=== PATIENT | male | born 1985 | race Caucasian/White ===

== ENCOUNTER 2019-01-06 10:14 | Emergency (ER) | payer BC, MEDICAID ==
[2019-01-06] MEDS: Sodium Chloride 0.9% 10 ML Syringe FLUSH PRN ×2 (10:40→13:38)
[2019-01-06] MEDS ORDERED: Lidocaine 2% HCl 6 ML JEL.PF.APP ONE ×2 (10:49→11:00)
[2019-01-06] MEDS: Lidocaine 2% HCl 6 ML JEL.PF.APP ONE ×2 (11:00→13:58)
--- NOTE | 2019-01-06 11:01 | EDM.PDOC ---
ED HPI GENERAL MEDICAL PROBLEM - General Stated Complaint: KIDNEY ISSUE Time Seen by Provider: 01/06/19 10:30 Source of Information: Reports: Patient History Limitations: Reports: No Limitations - History of Present Illness INITIAL COMMENTS - FREE TEXT/NARRATIVE: 33-year-old male who reports 4-5 days ago he began to feel somewhat bloated and having decreased urine output and he begin to take an [id number] diuretic that he bought at [employer] for the last 3-4 days he has noticed increasing abdominal swelling and increased swelling in his legs and arms and increased difficulty breathing. He's also noticed that he has had little urine output over this period of time as well he has not had any chest pain. He's had no nausea or vomiting. He reports she's been able to eat and drink normally. He also reports that about 3 weeks ago he "busted a nut" (strained his right groin and had testicular pain on the right side) and then this seemed to get better until about a week ago when he did the same thing and had recurrent right groin and right testicular pain. At present he just feels uncomfortable all over and doesn't really have any specific pain. In fact he tells me that his pain is at a 0/10. He is brought here by family members. He tells me that he is short of breath at rest and he and not lay down secondary to having marked increase in his breathing difficulty. He also notes that with any activity he is very short of breath. No fevers or chills. No blood in his urine. He reports he has been having bowel movements but he does feel that he is somewhat constipated. He also tells me that since he was a child he has had problems with his kidneys and ureters and he had to have surgery on his ureters for blockages as a child. 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 He presents via private vehicle markedly short of breath with total body edema. There are no other associated signs or symptoms. There are no other modifying factors. Onset: Other (4-5 days ago) Duration: Getting Worse Location: Reports: Other (All over) Quality: Reports: Ache Severity: Moderate Improves with: Reports: None Worsens with: Reports: None Context: Reports: Other (Not applicable) Associated Symptoms: Reports: Shortness of Breath, Other (Total body swelling) Treatments DISK SANDER: Reports: Other (see below) (Bien-chd-gknbbff diuretics) - Related Data Allergies Allergy/AdvReac Type Severity Reaction Status Date / Time bee venom protein (honey bee) Allergy Rash Verified 01/06/19 10:51 Past Medical History Genitourinary History: Reports: Other (See Below) (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; reported renal insufficiency from a CDL physical about a year ago.) - Past Surgical History Male Surgical History: Reports: Other (See Below) (Surgeries and procedures for ureteral obstruction/reflux as a child.) Social & Family History - Tobacco Use Smoking Status *Q: Unknown Ever Smoked (Nonsmoker) - Alcohol Use Alcohol Use History: Yes Alcohol Use Frequency: Rarely - Recreational Drug Use Recreational Drug Use: No - Living Situation & Occupation Living situation: Reports: with Significant Other Occupation: Employed (Drives truck) Social History Comment: He is here with his significant other, [id number] and mother. ED ROS GENERAL - Review of Systems Review Of Systems: See Below Constitutional: Reports: Malaise, Weakness, Weight Gain, Other (Total body swelling) HEENT: Reports: No Symptoms Respiratory: Reports: Shortness of Breath, Cough Cardiovascular: Reports: Dyspnea on Exertion, Orthopnea Endocrine: Reports: Fatigue GI/Abdominal: Reports: Constipation, Distension : Reports: Other (Decreased urinary output) Musculoskeletal: Reports: Other (Bilateral knee pain) Skin: Reports: Rash (Vesicular rash on legs) Neurological: Reports: Weakness (All over) Hematologic/Lymphatic: Reports: No Symptoms Immunologic: Reports: No Symptoms ED EXAM, GENERAL - Physical Exam Exam: See Below Exam Limited By: No Limitations General Appearance: Alert, WD/WN, Moderate Distress (To severe distress) Eye Exam: Bilateral Eye: EOMI, Normal Inspection, PERRL Ears: Normal External Exam, Hearing Grossly Normal Nose: Normal Inspection, Normal Mucosa, No Blood Throat/Mouth: Normal Inspection, Normal Lips Head: Atraumatic, Normocephalic Neck: Normal Inspection, Supple, Non-Tender, Full Range of Motion Respiratory/Chest: Respiratory Distress, Rales (Bilaterally), Wheezing, Accessory Muscle Use Cardiovascular: Normal Peripheral Pulses, Tachycardia Peripheral Pulses: 2+: Radial (L), Radial (R), Dorsalis Pedis (L), Dorsalis Pedis (R) GI/Abdominal: Normal Bowel Sounds, Distended. No: Rebound, Tender (Male) Exam: No Hernia, Scrotal Swelling, Other (Marked edema with tenderness over scrotum and somewhat withdrawn testicles) Back Exam: Normal Inspection Extremities: Normal Capillary Refill, Pedal Edema (Marked 2-3+ edema) Neurological: Alert, Oriented, CN II-XII Intact, Normal Cognition, Normal Gait, No Motor/Sensory Deficits Skin Exam: Warm, Dry, Intact EKG INTERPRETATION EKG Date: 01/06/19 Time: 10:25 Rhythm: Other (Sinus tachycardia) Rate (Beats/Min): 124 [place]: Normal P-Wave: Present QRS: Normal ST-T: Other (Early repolarization with ST flattening laterally and inferiorly) QT: Normal Comparison: NA - No Prior EKG Course - Vital Signs Last Recorded V/S: Last Vital Signs Temp 36.4 C 01/06/19 10:14 Pulse 127 H 01/06/19 10:14 Resp 28 H 01/06/19 10:14 BP 128/104 H 01/06/19 10:14 Pulse Ox 87 L 01/06/19 10:14 - Orders/Labs/Meds Orders: Active Orders 24 hr Category Date Time Status EKG Documentation Completion [RC] ASDIRECTED Care 01/06/19 10:53 Active Insert Green Catheter [Insert Urinary Catheter] [OM.PC] Care 01/06/19 11:00 Ordered Q24H Oxygen Therapy Adult [Oxygen Therapy, ED] [RC] Care 01/06/19 12:14 Active ASDIRECTED Urinary Catheter Assessment [RC] QSHIFT Care 01/06/19 10:54 Active Abdomen Pelvis wo Cont [CT] Stat Exams 01/06/19 11:57 Taken Chest 1V Frontal [CR] Stat Exams 01/06/19 10:51 Taken CULTURE BLOOD [BC] Urgent Lab 01/06/19 11:10 Received CULTURE BLOOD [BC] Urgent Lab 01/06/19 11:20 Received CULTURE URINE [RM] Stat Lab 01/06/19 11:00 Received Blood Culture x2 Reflex Set [OM.PC] Urgent Oth 01/06/19 10:55 Ordered Peripheral IV Insertion Adult [OM.PC] Routine Oth 01/06/19 10:51 Ordered EKG 12 Lead [EK] Routine Ther 01/06/19 10:51 Ordered Labs: Laboratory Tests 01/06/19 01/06/19 01/06/19 Range/Units 10:50 10:50 10:50 WBC 13.9 H (4.5-12.0) X10-3/uL RBC 4.73 (4.30-5.75) x10(6)uL Hgb 13.3 L (13.5-17.8) g/dL Hct 41.9 (30.0-51.3) % MCV 88.6 (80-96) fL MCH 28.2 (27.7-33.6) pg MCHC 31.8 L (32.2-35.4) g/dL RDW 19.1 H (11.5-15.5) % Plt Count 203 (125-369) X10(3)uL MPV 9.6 (7.4-10.4) fL Neut % (Auto) 76.0 (46-82) % Lymph % (Auto) 9.5 L (13-37) % [place] % (Auto) 10.5 (4-12) % Eos % (Auto) 0 L (1.0-5.0) % Baso % (Auto) 4 H (0-2) % Neut # (Auto) 10.6 H (1.6-8.3) # Lymph # (Auto) 1.3 (0.6-5.0) # [place] # (Auto) 1.5 H (0.0-1.3) # Eos # (Auto) 0.0 (0.0-0.8) # Baso # (Auto) 0.5 H (0.0-0.2) # PT (8.7-11.1) INR (0.89-1.13) APTT (24.4-33.2) SECONDS Sodium 135 (135-145) mmol/L Potassium 5.0 (3.5-5.3) mmol/L Chloride 103 (100-110) mmol/L Carbon Dioxide 8 L* (21-32) mmol/L BUN 147 H* (7-18) mg/dL Creatinine 8.7 H* (0.70-1.30) mg/dL Est Cr Clr Drug Dosing 13.13 mL/min Estimated GFR (MDRD) 7 L (>60) BUN/Creatinine Ratio 16.9 (9-20) Glucose 114 (80-116) mg/dL Lactic Acid (0.4-2.2) mmol/L Calcium 9.3 (8.6-10.2) mg/dL Magnesium 2.2 (1.8-2.5) mg/dL Total Bilirubin 1.0 (0.1-1.3) mg/dL AST 230 H* (5-25) IU/L ALT 267 H* (12-36) U/L Alkaline Phosphatase 120 H (56-112) IU/L Troponin I 0.128 H* (<0.017-0.056) ng/mL NT-Pro-B Natriuret Pep > 55564 H* (<=125) pg/mL Total Protein 5.9 L (6.0-8.0) g/dL Albumin 2.3 L (3.5-5.2) g/dL Globulin 3.6 g/dL Albumin/Globulin Ratio 0.6 TSH, Ultra Sensitive (0.36-3.74) IU/mL Urine Color (YELLOW) Urine Appearance (CLEAR) Urine pH (5.0-6.5) Ur Specific [place] (1.010-1.025) Urine Protein (NEGATIVE) mg/dL Urine Glucose (UA) (NORMAL) mg/dL Urine Ketones (NEGATIVE) mg/dL Urine Occult Blood (NEGATIVE) Urine Nitrite (NEGATIVE) Urine Bilirubin (NEGATIVE) Urine Urobilinogen (NEGATIVE) mg/dL Ur Leukocyte Esterase (NEGATIVE) Urine RBC (0-5) Urine WBC (0-5) Ur Squamous Epith Cells (NS,R,O) Urine Bacteria (NS) 01/06/19 01/06/19 01/06/19 Range/Units 10:50 11:00 11:10 WBC (4.5-12.0) X10-3/uL RBC (4.30-5.75) x10(6)uL Hgb (13.5-17.8) g/dL Hct (30.0-51.3) % MCV (80-96) fL MCH (27.7-33.6) pg MCHC (32.2-35.4) g/dL RDW (11.5-15.5) % Plt Count (125-369) X10(3)uL MPV (7.4-10.4) fL Neut % (Auto) (46-82) % Lymph % (Auto) (13-37) % [place] % (Auto) (4-12) % Eos % (Auto) (1.0-5.0) % Baso % (Auto) (0-2) % Neut # (Auto) (1.6-8.3) # Lymph # (Auto) (0.6-5.0) # [place] # (Auto) (0.0-1.3) # Eos # (Auto) (0.0-0.8) # Baso # (Auto) (0.0-0.2) # PT 18.5 H (8.7-11.1) INR 1.92 H (0.89-1.13) APTT 31.9 (24.4-33.2) SECONDS Sodium (135-145) mmol/L Potassium (3.5-5.3) mmol/L Chloride (100-110) mmol/L Carbon Dioxide (21-32) mmol/L BUN (7-18) mg/dL Creatinine (0.70-1.30) mg/dL Est Cr Clr Drug Dosing mL/min Estimated GFR (MDRD) (>60) BUN/Creatinine Ratio (9-20) Glucose (80-116) mg/dL Lactic Acid 2.5 H (0.4-2.2) mmol/L Calcium (8.6-10.2) mg/dL Magnesium (1.8-2.5) mg/dL Total Bilirubin (0.1-1.3) mg/dL AST (5-25) IU/L ALT (12-36) U/L Alkaline Phosphatase (56-112) IU/L Troponin I (<0.017-0.056) ng/mL NT-Pro-B Natriuret Pep (<=125) pg/mL Total Protein (6.0-8.0) g/dL Albumin (3.5-5.2) g/dL Globulin g/dL Albumin/Globulin Ratio TSH, Ultra Sensitive (0.36-3.74) IU/mL Urine Color Yellow (YELLOW) Urine Appearance Slightly cloudy (CLEAR) Urine pH 5.0 (5.0-6.5) Ur Specific [place] 1.015 (1.010-1.025) Urine Protein 500 H (NEGATIVE) mg/dL Urine Glucose (UA) Normal (NORMAL) mg/dL Urine Ketones Negative (NEGATIVE) mg/dL Urine Occult Blood Large H (NEGATIVE) Urine Nitrite Negative (NEGATIVE) Urine Bilirubin Negative (NEGATIVE) Urine Urobilinogen Normal (NEGATIVE) mg/dL Ur Leukocyte Esterase Negative (NEGATIVE) Urine RBC 10-20 H (0-5) Urine WBC 5-10 H (0-5) Ur Squamous Epith Cells Occasional (NS,R,O) Urine Bacteria Moderate H (NS) 01/06/19 Range/Units 13:05 WBC (4.5-12.0) X10-3/uL RBC (4.30-5.75) x10(6)uL Hgb (13.5-17.8) g/dL Hct (30.0-51.3) % MCV (80-96) fL MCH (27.7-33.6) pg MCHC (32.2-35.4) g/dL RDW (11.5-15.5) % Plt Count (125-369) X10(3)uL MPV (7.4-10.4) fL Neut % (Auto) (46-82) % Lymph % (Auto) (13-37) % [place] % (Auto) (4-12) % Eos % (Auto) (1.0-5.0) % Baso % (Auto) (0-2) % Neut # (Auto) (1.6-8.3) # Lymph # (Auto) (0.6-5.0) # [place] # (Auto) (0.0-1.3) # Eos # (Auto) (0.0-0.8) # Baso # (Auto) (0.0-0.2) # PT (8.7-11.1) INR (0.89-1.13) APTT (24.4-33.2) SECONDS Sodium (135-145) mmol/L Potassium (3.5-5.3) mmol/L Chloride (100-110) mmol/L Carbon Dioxide (21-32) mmol/L BUN (7-18) mg/dL Creatinine (0.70-1.30) mg/dL Est Cr Clr Drug Dosing mL/min Estimated GFR (MDRD) (>60) BUN/Creatinine Ratio (9-20) Glucose (80-116) mg/dL Lactic Acid (0.4-2.2) mmol/L Calcium (8.6-10.2) mg/dL Magnesium (1.8-2.5) mg/dL Total Bilirubin (0.1-1.3) mg/dL AST (5-25) IU/L ALT (12-36) U/L Alkaline Phosphatase (56-112) IU/L Troponin I (<0.017-0.056) ng/mL NT-Pro-B Natriuret Pep (<=125) pg/mL Total Protein (6.0-8.0) g/dL Albumin (3.5-5.2) g/dL Globulin g/dL Albumin/Globulin Ratio TSH, Ultra Sensitive 8.19 H* (0.36-3.74) IU/mL Urine Color (YELLOW) Urine Appearance (CLEAR) Urine pH (5.0-6.5) Ur Specific [place] (1.010-1.025) Urine Protein (NEGATIVE) mg/dL Urine Glucose (UA) (NORMAL) mg/dL Urine Ketones (NEGATIVE) mg/dL Urine Occult Blood (NEGATIVE) Urine Nitrite (NEGATIVE) Urine Bilirubin (NEGATIVE) Urine Urobilinogen (NEGATIVE) mg/dL Ur Leukocyte Esterase (NEGATIVE) Urine RBC (0-5) Urine WBC (0-5) Ur Squamous Epith Cells (NS,R,O) Urine Bacteria (NS) Meds: Medications Discontinued Medications Generic Name Dose Route Start Last Admin Trade Name Freq PRN Reason Stop Dose Admin Furosemide 100 mg 01/06/19 12:30 01/06/19 12:41 Lasix IVPUSH 01/06/19 12:31 100 mg NOW ONE Administration Lidocaine HCl Confirm 01/06/19 10:49 01/06/19 12:04 Glydo Administered 01/06/19 10:50 Not Given Dose 6 ml .ROUTE .STK-MED ONE Lidocaine HCl 3 ml 01/06/19 10:58 01/06/19 13:58 Glydo .XX 01/06/19 10:59 Not Given ONETIME ONE Lidocaine HCl 6 ml 01/06/19 11:00 01/06/19 11:00 Glydo .XX 01/06/19 11:01 6 ml ONETIME ONE Administration Sodium Chloride 10 ml 01/06/19 10:51 01/06/19 13:38 Saline Flush FLUSH 10 ml ASDIRECTED PRN Administration Keep Vein Open - Radiology Interpretation Free Text/Narrative:: Portable chest x-ray shows fluid overload per the radiologist. CT scan of abdomen and pelvis shows a large heart, bilateral pleural effusions, ascites and bilateral renal atrophy and hydronephrosis and ureteral dilation and shrunken liver per the radiologist. - Re-Assessments/Exams Free Text/Narrative Re-Assessment/Exam: 01/06/19 12:20: I discussed the findings of the blood tests and chest x-ray with the patient and his family he appears to be in acute renal failure with fluid overload and anasarca. He will need nephrology specially cares which would include dialysis which are not available at [facility] and he will need transfer to a facility with these services available. The patient and his family has directed me to discuss his case with the doctors at [facility]. 01/06/19 12:30: I discussed the patient's case with Dr. Magana, hospitalist at [facility], and she has agreed to accept the patient in transfer. He recommends giving the patient Lasix 100 mg IV. She also suggests adding a TSH to the patient's labs. The patient will be transferred via ambulance to [facility]. 01/06/19 12:52: I reevaluated the patient at this time. On 3 L/m via nasal cannula he is 100% SaO2. His blood pressure is 134/80 and his pulse rate is still in the 120s. He is awake, alert and appropriate. He is mentating appropriately. He appears metastable at this time area and Departure - Departure Time of Disposition: 12:55 Disposition: DC/Tfer to [facility] 02 Condition: Critical Clinical Impression: Anasarca associated with disorder of kidney Acute renal failure Qualifiers: Acute renal failure type: unspecified Qualified Code(s): N17.9 - Acute kidney failure, unspecified Fluid overload Qualifiers: Hypervolemia type: other Qualified Code(s): E87.79 - Other fluid overload - Discharge Information Referrals: PCP,None [Primary Care Provider] - Forms: ED Department Discharge Critical Care Note - Critical Care Note Total Time (mins): 95 Comments: Total critical care time spent with the patient including direct patient care, discussing his case with consulting physicians and arranging transfer was 95 minutes. - My Orders Last 24 Hours: My Active Orders 01/06/19 10:51 Chest 1V Frontal [CR] Stat Peripheral IV Insertion Adult [OM.PC] Routine EKG 12 Lead [EK] Routine 01/06/19 10:53 EKG Documentation Completion [RC] ASDIRECTED 01/06/19 10:54 Urinary Catheter Assessment [RC] QSHIFT 01/06/19 10:55 Blood Culture x2 Reflex Set [OM.PC] Urgent 01/06/19 11:00 Insert Green Catheter [Insert Urinary Catheter] [OM.PC] Q24H CULTURE URINE [RM] Stat 01/06/19 11:10 CULTURE BLOOD [BC] Urgent 01/06/19 11:20 CULTURE BLOOD [BC] Urgent 01/06/19 11:57 Abdomen Pelvis wo Cont [CT] Stat 01/06/19 12:14 Oxygen Therapy Adult [Oxygen Therapy, ED] [RC] ASDIRECTED - Assessment/Plan Last 24 Hours: My Active Orders 01/06/19 10:51 Chest 1V Frontal [CR] Stat Peripheral IV Insertion Adult [OM.PC] Routine EKG 12 Lead [EK] Routine 01/06/19 10:53 EKG Documentation Completion [RC] ASDIRECTED 01/06/19 10:54 Urinary Catheter Assessment [RC] QSHIFT 01/06/19 10:55 Blood Culture x2 Reflex Set [OM.PC] Urgent 01/06/19 11:00 Insert Green Catheter [Insert Urinary Catheter] [OM.PC] Q24H CULTURE URINE [RM] Stat 01/06/19 11:10 CULTURE BLOOD [BC] Urgent 01/06/19 11:20 CULTURE BLOOD [BC] Urgent 01/06/19 11:57 Abdomen Pelvis wo Cont [CT] Stat 01/06/19 12:14 Oxygen Therapy Adult [Oxygen Therapy, ED] [RC] ASDIRECTED
[2019-01-06] MEDS ORDERED: Furosemide 100 MG/10 ML SDV IVPUSH ONE (12:30)
== END 2019-01-06 13:20 ==
LOC: FB.ED 10:14
DX: N04.9 Nephrotic syndrome with unspecified morphologic changes (principal); N17.9 Acute kidney failure, unspecified; E87.79 Other fluid overload; Z91.030 Bee allergy status
CPT/HCPCS: 36415; 51702; 71045; 74176; 80053; 81001; 83605; 83735; 83880; 84443; 84484; 85025; 85610; 85730; 87040; 87086; 93005; 96374; 99285; A9270; J1940; 87186; 99291; 99292

== ENCOUNTER 2019-02-28 20:16 | Emergency (ER) | payer MEDICAID ==
--- NOTE | 2019-02-28 20:39 | EDM.PDOC ---
ED HPI GENERAL MEDICAL PROBLEM - General Chief Complaint: ENT Problem Stated Complaint: BLOODY NOSE Time Seen by Provider: 02/28/19 20:35 Source of Information: Reports: Patient History Limitations: Reports: No Limitations - History of Present Illness INITIAL COMMENTS - FREE TEXT/NARRATIVE: 33 yo male who complains of nose bleeding. This has been going on since last night on the right nostril. It's been on and off, after his questions. 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 His last dialysis was this morning and at that visit INR was 2.0. - Related Data Allergies Allergy/AdvReac Type Severity Reaction Status Date / Time bee venom protein (honey bee) Allergy Rash Verified 01/06/19 10:51 Home Meds: Home Meds Midodrine 5 mg PO BID 02/28/19 [History] Pantoprazole [ProTONIX] 40 mg PO DAILY 02/28/19 [History] Warfarin Sodium [Coumadin] 5 mg PO DAILY 02/28/19 [History] Past Medical History Cardiovascular History: Reports: Hypertension Genitourinary History: Reports: Other (See Below) (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; reported renal insufficiency from a CDL physical about a year ago.) Other Genitourinary History: hx torn testicle R x 3 in past. States 'urine tube grew shut & had to have a cathater for approx 10 days & had stent placed approx 12yrs ago. Neurological History: Reports: Concussion - Past Surgical History Male Surgical History: Reports: Other (See Below) (Surgeries and procedures for ureteral obstruction/reflux as a child.) Social & Family History - Family History Family Medical History: Noncontributory - Living Situation & Occupation Living situation: Reports: with Significant Other Occupation: Employed (Drives truck) ED ROS ENT - Review of Systems Review Of Systems: ROS reveals no pertinent complaints other than HPI. ED EXAM, ENT - Physical Exam Exam: See Below Exam Limited By: No Limitations General Appearance: Alert, WD/WN Nose: Active Bleeding (scanty active bleeing on medial side of nare,right). No : Nasal Deformity, Septal Perforation Mouth/Throat: Normal Inspection Head: Atraumatic, Normocephalic Course - Vital Signs Last Recorded V/S: Last Vital Signs Temp 99.1 F 02/28/19 20:16 Pulse 134 H 02/28/19 20:16 Resp 20 02/28/19 20:16 BP 106/77 02/28/19 20:16 Pulse Ox 100 02/28/19 20:16 Departure - Departure Time of Disposition: 20:44 Disposition: Home, Self-Care 01 Condition: Good Clinical Impression: Epistaxis - Discharge Information Referrals: PCP,None [Primary Care Provider] - Forms: ED Department Discharge - Problem List & Annotations (1) Epistaxis, recurrent SNOMED Code(s): 861175578, 947711273 Code(s): R04.0 - EPISTAXIS Status: Acute (2) Anticoagulant long-term use SNOMED Code(s): 712746734 Code(s): Z79.01 - OXIDE FURNACE TENDER (CURRENT) USE OF ANTICOAGULANTS Status: Acute - Problem List Review Problem List Initiated/Reviewed/Updated: Yes - Assessment/Plan Plan: I performed cauterization on the right nostril using silver nitrate sticks. It continued bleeding. I then packed it with nasal rocket.
== END 2019-02-28 20:52 | disposition home or self-care (01) ==
LOC: FB.ED 20:16
DX: R04.0 Epistaxis (principal); I10 Essential (primary) hypertension; Z91.030 Bee allergy status; Z79.899 Other long term (current) drug therapy; Z79.01 Long term (current) use of anticoagulants
CPT/HCPCS: 30903; 99283